=== PATIENT | male | born 1960 | race Caucasian/White ===

== ENCOUNTER 2021-10-04 07:08 | Outpatient (CLI) | payer BC, SELFPAY ==
--- NOTE | 2021-10-04 07:17 | CT_ITS ---
EXAM: CT CHEST WITHOUT INTRAVENOUS CONTRAST : 1960 CLINICAL INDICATION: SCREENING TECHNIQUE: Helically acquired images were obtained of the chest without intravenous contrast. This CT exam was performed using one or more of the following dose reduction techniques: automated exposure control, adjustment of the mA and/or kV according to patient size, and/or use of iterative reconstruction technique. This report was created using [employer] report generation technology. COMPARISON: None. FINDINGS: LUNGS AND PLEURAL SPACES: There is a single 6 mm nodule in the right middle lobe along the inferior margin of the minor fissure. No other nodules identified. No pleural effusion or thickening. No pneumothorax. HEART: Surgical changes status post CABG. Heart size is normal. No pericardial effusion. Coronary artery calcifications. MEDIASTINUM: Unremarkable. No mediastinal or hilar adenopathy. Esophagus is unremarkable. No hiatal hernia. THYROID: Unremarkable. No thyroid lesions. BONES/JOINTS: Degenerative changes of the spine. No suspicious lytic or blastic abnormality. VASCULATURE: Unremarkable. Thoracic aorta is non-dilated. CT/Low Dose CT Lung Screening IMPRESSION: There is a single 6 mm nodule in the right middle lobe along the inferior margin of the minor fissure. Lung-RADS score: 2 - Benign Appearance or Behavior. Recommend continued annual screening with low-dose CT (LDCT) in 12 months. Individualized dose optimization techniques were used for this CT. at 0627 Reported and signed by: Kushal Pennington MD Electronically Signed: Kushal Pennington MD at 6:26 EDT ,
== END 2021-10-04 23:59 | disposition home or self-care (01) ==
LOC: CT 07:13
PROVIDERS: PCP Nurse Practitioner Primary Care; Visit Provider Nurse Practitioner Primary Care
DX: Z12.2 Encounter for screening for malignant neoplasm of respiratory organs (principal); Z72.0 Tobacco use
CPT/HCPCS: 71271